=== PATIENT | female | born 1950 | race Caucasian/White ===

== ENCOUNTER 2016-08-31 08:45 | Outpatient (RCR) | payer MEDICARE, OTHER ==
[~2016-08-31 08:45] MED LIST: NORCO 325 MG-51 TAB PO; PROAIR HFA0.09 MG/AC IH; TENORMIN 2525 MG/TAB PO; XANAX .25M0.25 MG/TA PO
== END 2016-11-01 | disposition still patient (30) ==
LOC: MKS.ESL.PT
DX: G20 Parkinson's disease (principal); R26.89 Other abnormalities of gait and mobility
CPT/HCPCS: G8978-GP; G8979-GP

== ENCOUNTER 2016-12-23 14:15 | Outpatient (RCR) | payer MEDICARE, OTHER | END 2017-03-22 | disposition home or self-care (01) | LOC: WSST | DX: R94.8 Abnormal results of function studies of other organs and systems (principal); R49.8 Other voice and resonance disorders | CPT/HCPCS: G9171-GN; G9172-GN ==

== ENCOUNTER 2017-03-15 19:14 | Emergency (ER) | payer MEDICARE, OTHER ==
[~2017-03-15] VITALS: Ht 170.2 cm; Wt 72.7 kg
[2017-03-15 19:23] VITALS: BP 187/84; PULSE 80; TEMP 98
== END 2017-03-15 20:26 | disposition left against medical advice (07) ==
LOC: COL.ER 19:14
DX: R10.10 Upper abdominal pain, unspecified (principal)

== ENCOUNTER 2017-06-16 11:30 | Outpatient (RCR) | payer MEDICARE, OTHER | END 2017-09-05 | disposition home or self-care (01) | LOC: MKS.ESL.PT | DX: S83.521D Sprain of posterior cruciate ligament of right knee, subsequent encounter (principal); S83.206D Unspecified tear of unspecified meniscus, current injury, right knee, subsequent encounter; W18.09XD Striking against other object with subsequent fall, subsequent encounter | CPT/HCPCS: G8978-GP; G8979-GP ==

== ENCOUNTER 2018-05-12 08:30 | Outpatient (RCR) | payer MEDICARE | END 2018-07-13 | disposition home or self-care (01) | LOC: MKS.ESL.PT | DX: M54.5 Low back pain (principal); G20 Parkinson's disease ==

== ENCOUNTER 2019-10-13 12:57 | Emergency (ER) | payer MEDICARE ==
[~2019-10-13] VITALS: Ht 170.2 cm; Wt 81.8 kg
[2019-10-13 13:05] VITALS: TEMP 98.3
[2019-10-13 13:33] LABS: BASO % 0.6 % (0.0-2.0); EOS # 0.2 (0.0-0.7); EOS % 2.9 % (0-4.0); GRAN % 63.2 % (42.2-75.2); HEMATOCRIT 40.1 % (37.0-47.0); HEMOGLOBIN 13.5 g/dl (12.5-16.0); LYMPH # 1.7 (1.2-3.4); LYMPH % 26.6 % (20.0-51.0); MEAN CELL VOLUME 88 fl (80.0-100.0); MEAN CORPUSCULAR HEMOGLOBIN 30 pg (27.0-31.0); MEAN CORPUSCULAR HGB CONC 34 g/dl (33.0-37.0); MONO # 0.4 (0.1-0.6); MONO % 6.4 % (1.7-9.3); PLATELET COUNT 187 K/mm3 (130-400); RED BLOOD COUNT 4.56 M/mm3 (4.10-5.30); REDCELL DISTRIBUTION WIDTH-CV 12.4 % (11.5-14.5)
[2019-10-13 13:40] LABS: ALANINE AMINOTRANSFERASE 15 U/L (4-34); ALBUMIN 4.4 gm/dL (3.5-5.0); ALKALINE PHOSPHATASE 73 U/L (50-136); ANION GAP 11 mmol/L (7-16); AST,SGOT 23 U/L (15-37); BILIRUBIN,TOTAL 0.9 mg/dL (0.0-1.0); BLOOD UREA NITROGEN 22 mg/dL (7-17); CALCIUM 9.1 mg/dL (8.4-10.2); CARBON DIOXIDE 27 mmol/L (22-30); CHLORIDE 99 mmol/L (98-107); CREATININE, serum 0.96 (0.52-1.25); GLUCOSE 117 mg/dL (74-106); POTASSIUM 4.1 mmol/L (3.4-5.0); SODIUM 137 mmol/L (137-145); TOTAL PROTEIN 7.6 gm/dL (6.4-8.2)
[2019-10-13 13:54] LABS: TROPONIN-I < 0.012 ng/mL (0.000-0.035)
[2019-10-13 15:02] VITALS: BP 119/57; PULSE 97
== END 2019-10-13 15:02 | disposition home or self-care (01) ==
LOC: COL.ER 12:57
PROVIDERS: Emergency Medicine
DX: R07.89 Other chest pain (principal); R06.02 Shortness of breath
CPT/HCPCS: J7030; Q9967

== ENCOUNTER → 2020-12-09 | Outpatient (CLI) | payer MEDICARE | LOC: COL.RAD 12:14 | DX: Z12.2 Encounter for screening for malignant neoplasm of respiratory organs (principal); J47.9 Bronchiectasis, uncomplicated; Z87.891 Personal history of nicotine dependence; Z95.0 Presence of cardiac pacemaker ==

== ENCOUNTER 2021-03-19 05:08 | Emergency (ER) | payer MEDICARE ==
[~2021-03-19] VITALS: Ht 170.2 cm; Wt 100.0 kg
[2021-03-19 05:13] VITALS: TEMP 98.4
[2021-03-19] MEDS ORDERED: PREDNISONE50 MG PO (05:31)
[2021-03-19 05:39] VITALS: BP 140/61; PULSE 86
== END 2021-03-19 05:39 | disposition home or self-care (01) ==
LOC: COL.ER 05:08
DX: M54.31 Sciatica, right side (principal)
CPT/HCPCS: J7512

== ENCOUNTER 2021-06-17 07:20 | Day surgery (SDC) | payer MEDICARE ==
[~2021-06-17] VITALS: Ht 170.2 cm; Wt 87.8 kg
[~2021-06-17 07:20] MED LIST changes: +PREDNISONE50 MG PO
[2021-06-17] MEDS ORDERED: HCTZ12.5TAB PO (07:43)
[2021-06-17] MEDS ORDERED: SINGULAIR 110 MG/TAB PO (07:44)
[2021-06-17] MEDS ORDERED: VITAMIND3 5000 PO (07:44)
[2021-06-17] MEDS ORDERED: CYMBALTA 60MG60 MG PO (07:44)
[2021-06-17] MEDS ORDERED: PULMICORT0.25 MG/2 IH (07:45)
[2021-06-17] MEDS ORDERED: PERFOROMIS20 MCG/2 M IH (07:45)
[2021-06-17 07:47] VITALS: BP 131/63; PULSE 76; TEMP 97.4
[2021-06-17] MEDS ORDERED: ATROVENT INHALE14 GM INH (07:47)
[2021-06-17 09:05] VITALS: BP 138/74; PULSE 77; TEMP 97.4
--- NOTE | 2021-06-17 09:05 | NUR ---
Pt arrived from procedure, drowsy but oriented. Pt assisted from cart to chair by RN, monitors applied and VSS. Hot coffee, ice water and a warm muffin provided per request. Warm blankets provided. Pt oriented to room and call klein, within reach. Denies nausea. No vomiting. Verbal report recieved.
[2021-06-17 09:20] VITALS: BP 1345/71; PULSE 70
--- NOTE | 2021-06-17 09:20 | NUR ---
VSS. Pt expressed desire to be discharged. Additonal warm muffin provided. Son contact per request with pick-up information. Call klein remains within reach.
[2021-06-17 09:35] VITALS: BP 117/64; PULSE 77
--- NOTE | 2021-06-17 09:35 | NUR ---
is speaking with the pt.
--- NOTE | 2021-06-17 09:40 | NUR ---
VSS. IV discontinued. Catheter tip intact. Pressure bandage applied. No redness or swelling noted. DC instructions and educational material reviewed with the pt, who verbalized understanding and signed the related paperwork. Pt denies having questions or concerns. RN assisted with putting pt necklace on, per request. Pt denies needing assistance changing into personal clothes. Call klein within reach.
--- NOTE | 2021-06-17 10:00 | NUR ---
Pt dismissed from endo via wheelchair to the pt entrence by Daniella RENNER and dismissed to private car, driven by Chapito her son. Pt has DC packet and personal belongings.
== END 2021-06-17 10:00 | disposition home or self-care (01) ==
LOC: SDCO 07:20
DX: Z12.11 Encounter for screening for malignant neoplasm of colon (principal); D12.2 Benign neoplasm of ascending colon; D12.5 Benign neoplasm of sigmoid colon; K57.30 Diverticulosis of large intestine without perforation or abscess without bleeding; K62.1 Rectal polyp; D17.5 Benign lipomatous neoplasm of intra-abdominal organs; K21.00 Gastro-esophageal reflux disease with esophagitis, without bleeding; K44.9 Diaphragmatic hernia without obstruction or gangrene; K29.80 Duodenitis without bleeding; G47.33 Obstructive sleep apnea (adult) (pediatric); K90.41 Non-celiac gluten sensitivity
CPT/HCPCS: J2704; J3010; J7030

== ENCOUNTER → 2021-10-02 | Outpatient (CLI) | payer MEDICARE ==
[~2021-10-02] MED LIST changes: +ATROVENT INHALE14 GM INH; +CYMBALTA 60MG60 MG PO; +HCTZ12.5TAB PO; +PERFOROMIS20 MCG/2 M IH; +PULMICORT0.25 MG/2 IH; +SINGULAIR 110 MG/TAB PO; +VITAMIND3 5000 PO
== END ==
LOC: COL.RAD 09:34
DX: K76.0 Fatty (change of) liver, not elsewhere classified (principal); K80.80 Other cholelithiasis without obstruction

== ENCOUNTER 2022-03-02 11:58 | Emergency (ER) | payer MEDICARE ==
[~2022-03-02] VITALS: Ht 170.2 cm; Wt 82.7 kg
[2022-03-02 12:09] VITALS: TEMP 98
[2022-03-02 13:21] LABS: BASO % 0.8 % (0.0-2.0); EOS # 0.2 K/mm3 (0.0-0.7); EOS % 5.8 % (0.0-4.0); GRAN # 2.3 K/mm3 (1.4-6.5); GRAN % 57.9 % (42.2-75.2); HEMATOCRIT 38.8 % (37.0-47.0); HEMOGLOBIN 13.2 g/dl (12.5-16.0); LYMPH % 25.1 % (20.0-51.0); MEAN CELL VOLUME 86 fl (80.0-100.0); MEAN CORPUSCULAR HEMOGLOBIN 29 pg (27-31); MEAN CORPUSCULAR HGB CONC 34 g/dl (33.0-37.0); MEAN PLATELET VOLUME 10.6 fl (7.4-10.4); MONO # 0.4 K/mm3 (0.1-0.6); MONO % 9.9 % (1.7-9.3); PLATELET COUNT 171 K/mm3 (130-400); RED BLOOD COUNT 4.54 M/mm3 (4.10-5.30); REDCELL DISTRIBUTION WIDTH-CV 13.1 % (11.5-14.5)
[2022-03-02 13:35] LABS: ALANINE AMINOTRANSFERASE 6 U/L (0-55); ALBUMIN 3.4 gm/dL (3.4-4.8); ALKALINE PHOSPHATASE 59 U/L (40-150); ANION GAP 11 mmol/L (7-16); AST,SGOT 12 U/L (5-34); BILIRUBIN,TOTAL 0.6 mg/dL (0.2-1.2); BLOOD UREA NITROGEN 13 mg/dL (10-20); C-REACTIVE PROTEIN 2.21 mg/dL (0.00-0.50); CALCIUM 9.2 mg/dL (8.4-10.2); CARBON DIOXIDE 25 mmol/L (23-31); CHLORIDE 103 mmol/L (98-107); CREATININE, serum 0.99 mg/dL (0.57-1.11); GLUCOSE 166 mg/dL (70-99); POTASSIUM 3.5 mmol/L (3.5-4.5); SODIUM 139 mmol/L (136-145); TOTAL PROTEIN 7.3 gm/dL (6.2-8.1)
[2022-03-02 13:41] LABS: TROPONIN-I < 0.010 ng/mL (0.00-0.033)
[2022-03-02] MEDS ORDERED: PREDNISONE20 MG PO (13:48)
[2022-03-02 14:10] VITALS: BP 126/64; PULSE 89
== END 2022-03-02 14:10 | disposition home or self-care (01) ==
LOC: COL.ER 11:58
PROVIDERS: Nurse Practitioner
DX: J44.1 Chronic obstructive pulmonary disease with (acute) exacerbation (principal)

== ENCOUNTER → 2022-05-26 | Outpatient (CLI) | payer MEDICARE ==
[~2022-05-26] MED LIST changes: +PREDNISONE20 MG PO
== END ==
LOC: COL.RAD 10:58
DX: K80.20 Calculus of gallbladder without cholecystitis without obstruction (principal); R16.0 Hepatomegaly, not elsewhere classified; E88.89 Other specified metabolic disorders